=== PATIENT | female | born 1990 | race Caucasian/White ===

== ENCOUNTER → 2017-06-13 | Outpatient (REF) | payer OTHER ==
[~2017-06-13] MED LIST: ACET50TA PO; IBUP-1114 PO; PRENTAB9 PO; TUMS500C PO
== END ==
LOC: M LAB REF 17:10
PROVIDERS: ATTEND Advanced Practice Midwife
DX: Z12.4 Encounter for screening for malignant neoplasm of cervix (principal)

== ENCOUNTER → 2017-09-22 | Outpatient (CLI) | payer OTHER ==
[2017-09-22 14:10] LABS: HCG, SERUM QUANTITATIVE 9 MIU/ML
== END ==
LOC: M LAB 13:06
DX: O20.0 Threatened abortion (principal); Z3A.00 Weeks of gestation of pregnancy not specified
CPT/HCPCS: 84702

== ENCOUNTER → 2017-09-24 | Outpatient (CLI) | payer OTHER ==
[2017-09-24 18:21] LABS: HCG, SERUM QUANTITATIVE 3 MIU/ML
== END ==
LOC: M LAB 16:50
DX: O20.0 Threatened abortion (principal)

== ENCOUNTER → 2018-02-07 | Outpatient (CLI) | payer OTHER | LOC: M RAD 09:12 | DX: R51 Headache (principal); R41.3 Other amnesia; R47.01 Aphasia; G47.9 Sleep disorder, unspecified; J34.1 Cyst and mucocele of nose and nasal sinus | CPT/HCPCS: 70551 ==

== ENCOUNTER → 2018-03-26 | Outpatient (CLI) | payer OTHER | LOC: M RAD 17:29 | DX: J32.0 Chronic maxillary sinusitis (principal) ==

== ENCOUNTER → 2020-01-07 | Outpatient (CLI) | payer OTHER ==
[~2020-01-07] MED LIST changes: -ACET50TA PO; +MAPA500T2 PO
--- NOTE | 2020-01-08 07:34 | REP ---
OB ULTRASOUND: Real-time sonographic evaluation of the gravid uterus is performed. There is a single intrauterine gestation. The gestational age is 24 weeks, EDC 04/28/2020. Today's measurements indicate appropriate growth. Biometry and Growth: BPD 60 mm = 24 weeks 3 days, 60th percentile HC 218 mm = 23 weeks 6 days, 45th percentile AC 194 mm = 24 weeks 1 day, 52nd percentile FL 43 mm = 24 weeks 0 days, 52nd percentile HC/AC ratio 1.12 within normal range of 1.02 to 1.21. Estimated weight 659 grams, 47th percentile. SEEN/GROSSLY UNREMARKABLE Lateral ventricles Yes Posterior fossa Yes Upper lip Yes Four-chamber heart Yes LVOT Yes RVOT Yes Stomach Yes Cord insertion No Three vessel cord No Kidneys Yes Bladder Yes Spine Yes Cervical length: Closed and measures 4 cm in length. heart rate: 129 beats per minute. position: Vertex. Placenta: Posterior and grade 1 with no previa or abruption. Amniotic fluid: Within normal limits.
== END ==
LOC: M WHC 09:03
PROVIDERS: ATTEND Advanced Practice Midwife
DX: O99.212 Obesity complicating pregnancy, second trimester (principal); Z3A.24 24 weeks gestation of pregnancy

== ENCOUNTER → 2020-02-03 | Outpatient (CLI) | payer OTHER ==
--- NOTE | 2020-02-04 03:46 | REP ---
Clinical: Anatomical evaluation. Comparison: 01/07/2020 . Findings: Examination demonstrates a single live intrauterine in cephalic presentation. motion is identified by technologist. Placenta is noted posterior and grade I without evidence for placenta previa or abruption. Amniotic fluid volume is normal. Cervix measures 3.7 cm in length and appears closed. No evidence for nuchal cord. Gestational age by LMP 27 weeks 6 days with LAUREN 04/28/2020 . Gestational age by current measurements 28 weeks 0 days with LAUREN 04/27/2020 . FHR equals 132 beats per minute. Estimated weight 1239 grams ( 57th percentile). Anatomical assessment demonstrates normal structures including cranium, facial features, lungs, four-chamber heart/ventricular outflow tracts, diaphragm, stomach, cord insertion/three-vessel cord, kidneys/bladder. Impression: A single live intrauterine in cephalic presentation demonstrating appropriate interval growth. In conjunction with prior examination anatomical assessment is complete and normal.
== END ==
LOC: M WHC 08:02
PROVIDERS: ATTEND Advanced Practice Midwife
DX: O99.212 Obesity complicating pregnancy, second trimester (principal); E66.9 Obesity, unspecified; Z3A.27 27 weeks gestation of pregnancy

== ENCOUNTER → 2020-02-24 | Outpatient (CLI) | payer OTHER | LOC: M LAB 07:02 | PROVIDERS: ATTEND Advanced Practice Midwife | DX: Z34.93 Encounter for supervision of normal pregnancy, unspecified, third trimester (principal) ==

== ENCOUNTER → 2020-03-28 | Outpatient (REF) | payer OTHER ==
[~2020-03-28] MED LIST changes: +ACET-683 PO; +BUSP10TA PO; +IBUP80TA PO; +OMEP10CASR PO
[2020-04-24 14:50] LABS: HEMATOCRIT 34.9 % (36.0-47.0); HEMOGLOBIN 11.2 g/dl (12.0-15.5); MEAN CORPUSCULAR HEMOGLOBIN 31.2 pg (27.0-33.0); MEAN CORPUSCULAR HGB CONC 32.1 g/dl (32.0-36.5); MEAN CORPUSCULAR VOLUME 97.2 fl (80.0-96.0); PLATELET COUNT, AUTOMATED 254 10^3/uL (150-450); RED BLOOD COUNT 3.59 10^6/uL (4.00-5.40); WHITE BLOOD COUNT 10.7 10^3/uL (4.0-10.0)
[2020-05-12 12:53] LABS: ALT/SGPT 17 U/L (12-78); BILIRUBIN,TOTAL 0.3 MG/DL (0.2-1.0); CREATININE FOR GFR 0.49 MG/DL (0.55-1.30); GLOMERULAR FILTRATION RATE > 60.0 (>60); LDH LACTATE DEHYDROGENASE 152 U/L (84-246); URIC ACID 3.5 MG/DL (2.6-6.0)
[2020-05-12 12:54] LABS: TOTAL PROTEIN,RANDOM URINE 16.6 MG/DL (0.0-12.0)
== END ==
LOC: M SFHCWAGY 12:46
PROVIDERS: ATTEND Advanced Practice Midwife
DX: Z34.83 Encounter for supervision of other normal pregnancy, third trimester (principal)

== ENCOUNTER → 2020-04-06 | Outpatient (REF) | payer OTHER | LOC: M SFHCWAGY 14:05 | PROVIDERS: ATTEND Advanced Practice Midwife | DX: Z34.83 Encounter for supervision of other normal pregnancy, third trimester (principal) | CPT/HCPCS: 87081; G0463 ==

== ENCOUNTER 2020-04-09 09:00 | Emergency (ER) | payer OTHER ==
[~2020-04-09 09:00] MED LIST changes: -ACET-683 PO; -BUSP10TA PO; -IBUP80TA PO; -OMEP10CASR PO
--- NOTE | 2020-05-12 15:30 | ECGEPIP ---
SINUS RHYTHM ABNORMAL QRS-T ANGLE ABNORMAL ECG NONSPECIFIC ST & T CHANGES NO PRIOR DUE TO DOWNTIME SEE SCANNED DOWNTIME REPORT MTDD
[2020-05-22 10:21] LABS: INR 1.03; PARTIAL THROMBOPLASTIN TIME 26.2 SECONDS (24.2-38.5); PROTHROMBIN TIME 13.7 SECONDS (12.5-14.3)
[2020-05-22 22:16] LABS: BASO % 0.4 % (0.0-1.0); EOS # 0.1 10^3/uL (0.0-0.5); EOS % 1.2 % (0.0-3.0); HEMATOCRIT 30.7 % (36.0-47.0); HEMOGLOBIN 10.4 g/dl (12.0-15.5); LYMPH # 2.3 10^3/uL (1.5-5.0); LYMPH % 22.3 % (24.0-44.0); MEAN CORPUSCULAR HEMOGLOBIN 31.4 pg (27.0-33.0); MEAN CORPUSCULAR HGB CONC 33.9 g/dl (32.0-36.5); MEAN CORPUSCULAR VOLUME 92.7 fl (80.0-96.0); MONO # 0.6 10^3/uL (0.0-0.8); MONO % 6.3 % (0.0-5.0); NEUTROPHILS % 68.6 % (36.0-66.0); PLATELET COUNT, AUTOMATED 253 10^3/uL (150-450); RED BLOOD COUNT 3.31 10^6/uL (4.00-5.40); WHITE BLOOD COUNT 10.2 10^3/uL (4.0-10.0)
== END 2020-04-09 09:50 | disposition admitted as inpatient to this hospital (09) ==
LOC: M LDO 09:00 → M ED 09:00
DX: O99.413 Diseases of the circulatory system complicating pregnancy, third trimester (principal); O99.353 Diseases of the nervous system complicating pregnancy, third trimester; R06.02 Shortness of breath; R42 Dizziness and giddiness; Z3A.37 37 weeks gestation of pregnancy

== ENCOUNTER 2020-04-09 09:55 | Outpatient (CLI) | payer OTHER | END 2020-04-09 12:05 | LOC: M LDO 09:55 | PROVIDERS: ATTEND Obstetrics & Gynecology | DX: O99.413 Diseases of the circulatory system complicating pregnancy, third trimester (principal); R06.02 Shortness of breath; O99.353 Diseases of the nervous system complicating pregnancy, third trimester; R42 Dizziness and giddiness; Z3A.37 37 weeks gestation of pregnancy ==

== ENCOUNTER 2020-04-11 20:54 | Inpatient (IN) | payer OTHER ==
[~2020-04-11] VITALS: Ht 149.9 cm; Wt 97.4 kg
[2020-04-11] MEDS ORDERED: PENICILLIN G POTASSIUM IV 5 MU in D5W MINI-BAG PLUS 100 ML IV STA (21:47)
[2020-04-11 22:07] LABS: HEMATOCRIT 32.4 % (36.0-47.0); HEMOGLOBIN 10.9 g/dl (12.0-15.5); MEAN CORPUSCULAR HGB CONC 33.6 g/dl (32.0-36.5); PLATELET COUNT, AUTOMATED 272 10^3/uL (150-450); RED BLOOD COUNT 3.52 10^6/uL (4.00-5.40); WHITE BLOOD COUNT 11.7 10^3/uL (4.0-10.0)
[2020-04-11] MEDS: busPIRone 10 MG TAB PO SCH (23:15)
[2020-04-11] MEDS ORDERED: OXYTOCIN DRIP 30 UNITS in IV 1 EA IV SCH (23:15)
[2020-04-11] MEDS ORDERED: ONDANSETRON 4MG/2ML VIAL IV PRN (23:15)
[2020-04-12] VITALS (25 sets, daily range): BP systolic 99–149; BP diastolic 48–92
[2020-04-12] MEDS: LR 1,000 ML IV SCH ×2 (00:43→08:37)
[2020-04-12] MEDS ORDERED: BUSP10TA PO (02:04)
[2020-04-12] MEDS: PENICILLIN G POTASSIUM IV 2.5 MU in IV 1 EA IV SCH ×3 (03:06→12:17)
[2020-04-12] MEDS ORDERED: OMEP10CASR PO (03:57)
[2020-04-12] MEDS ORDERED: FENTANYL 2MCG/ML ROPIVACAINE 0.2% IN 0.9% NACL 100ML IVBAG As Ordered ONE (04:27)
[2020-04-12] MEDS ORDERED: LACTATED RINGER'S 1000 ML IV PRN (05:30)
[2020-04-12] MEDS ORDERED: EPIDURAL/PCA KEYS XX PRN (05:30)
[2020-04-12] MEDS ORDERED: EPIDURAL COMMENT XX SCH (05:30)
[2020-04-12] MEDS ORDERED: ONDANSETRON 4MG/2ML VIAL IV PRN (05:30)
[2020-04-12] MEDS ORDERED: FENTANYL/ROPIVACAINE/NACL BAG 100 ML EPIDURAL SCH (05:30)
[2020-04-12] MEDS ORDERED: ePHEDrine SULFATE 25 MG/5 ML(5MG/ML) SYRINGE IV PRN (05:30)
[2020-04-12] MEDS ORDERED: REFRIGERATOR IV KEYS XX PRN (05:30)
[2020-04-12] MEDS ORDERED: NALOXONE INJ 0.4MG/1ML VIAL (J2310 PER 1MG) IV PRN (05:30)
[2020-04-12] MEDS ORDERED: diphenhydrAMINE 50MG/ML VIAL (J1200) IV PRN (05:30)
[2020-04-12] MEDS: busPIRone 10 MG TAB PO SCH ×2 (08:37→20:16)
[2020-04-12] MEDS ORDERED: fentaNYL 100 MCG/2 ML INJECTION (J3010) As Ordered ONE (10:27)
[2020-04-12] MEDS ORDERED: PENICILLIN 100,000 U/ML SYRINGE 2.5MU As Ordered ONE (12:15)
[2020-04-12] MEDS ORDERED: ACETAMINOPHEN 500 MG TAB PO PRN (14:00)
[2020-04-12] MEDS ORDERED: DOCUSATE SODIUM 100 MG CAP PO PRN (14:00)
[2020-04-12] MEDS ORDERED: METHYLERGONOVINE MALEATE 0.2 MG TAB PO PRN (14:00)
[2020-04-12] MEDS ORDERED: DIBUCAINE 1% OINTMENT 30GM TOP PRN (14:00)
[2020-04-12] MEDS ORDERED: ACETAMINOPHEN TAB 650MG DOSE (2X325MG) PO PRN (14:00)
[2020-04-12] MEDS ORDERED: RHOGAM 300 MCG (1500 IU) INJ (J2790) IM SCH (15:00)
[2020-04-12] MEDS ORDERED: OXYTOCIN DRIP 30 UNITS in IV 1 EA IV SCH (15:00)
[2020-04-12] MEDS ORDERED: MEASLES,MUMPS,RUBELLA VACCINE INJ (MMR-II) (90707) SC SCH (15:00)
[2020-04-12 15:20] LABS: HEPATITIS B SURFACE ANTIGEN NEGATIVE (NEGATIVE); HIV 1&2 SCREEN CENTAUR NEGATIVE (NEGATIVE)
[2020-04-12] MEDS ORDERED: BOOSTRIX/ADACEL VACCINE (DIPHTH/PERTUSS/ACELL/TETANUS) 0.5ML SYR IM PRN (18:15)
[2020-04-12] MEDS: IBUPROFEN 800 MG TAB PO PRN (19:32)
[2020-04-13 06:00] VITALS: BP 108/51
[2020-04-13] MEDS: IBUPROFEN 800 MG TAB PO PRN (07:40)
[2020-04-13] MEDS: PRENATAL VITAMINS CHEWABLE TABLET PO SCH (08:16)
[2020-04-13] MEDS: busPIRone 10 MG TAB PO SCH ×2 (08:16→20:56)
[2020-04-13] MEDS: IBUPROFEN 600MG TAB PO PRN (15:21)
[2020-04-13 18:00] VITALS: BP 131/76
[2020-04-14] MEDS: IBUPROFEN 600MG TAB PO PRN (05:24)
[2020-04-14 06:00] VITALS: BP 114/58
[2020-04-14] MEDS: busPIRone 10 MG TAB PO SCH (07:27)
[2020-04-14] MEDS: PRENATAL VITAMINS CHEWABLE TABLET PO SCH (07:27)
[2020-04-14] MEDS ORDERED: ACET-683 PO (09:21)
[2020-04-14] MEDS ORDERED: IBUP80TA PO (09:21)
--- NOTE | 2020-05-18 15:12 | ECGEPIP ---
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
--- NOTE | 2020-05-29 10:25 | HPE ---
DATE OF ADMISSION: 04/11/2020 REASON FOR ADMISSION: Spontaneous rupture of membranes. HISTORY OF PRESENT ILLNESS: Patient is a 29-year-old, 3, para 1, who presents with an EDC of 04/28/2020 with complaints of leakage of clear fluid. She reports a gush of fluid that occurred at approximately 8:00 this evening. She has had some irregular contractions. She reports active movement. Her course has been remarkable for recent heart palpitations. She currently has a Holter monitor on for evaluation of these heart palpitations. Otherwise, she has had an uncomplicated course. PAST MEDICAL HISTORY: Significant for anxiety. PAST SURGICAL HISTORY: Tonsillectomy and adenoidectomy. 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 She denies any alcohol, tobacco, or drug use during the . OBSTETRICAL HISTORY: She is 3, para 1. She has had one term vaginal delivery which was uncomplicated. PHYSICAL EXAMINATION: Vital signs: Stable. She is afebrile. She has a category 1 heart tracing. General appearance: Well-appearing, in no acute distress. Lungs: Clear to auscultation bilaterally. Cardiovascular: Heart regular rate and rhythm. Abdomen: Gravid, nontender. Cervical: She is 2 cm dilated, 50% effaced, -2 station, grossly ruptured. ASSESSMENT: * This patient is a 29-year-old 3, para 1, who presents with an EDC of 04/28/2020 with spontaneous rupture of membranes. * Reassuring status. PLAN: * Admit to labor and delivery, complete blood count (CBC), rapid plasma reagin (RPR), type and screen. * Dr. Singleton, varnish blender, has been notified for recommendations. Plan to obtain repeat EKG and will fax over to Dr. Singleton's office. * Patient is a good candidate for an epidural. * Anticipate spontaneous vaginal delivery. edited: 06/16/2020 [id number] FRIDAD
== END 2020-04-14 12:15 | disposition home or self-care (01) | DRG 807 ==
LOC: M LDO 20:54 → M LDI 21:29 → M OBS 04-12 15:43
PROVIDERS: ADMIT Obstetrics & Gynecology; ATTEND Obstetrics & Gynecology
PROC: 10E0XZZ Delivery of Products of Conception, External Approach (ICD-10-PCS; principal; 2020-04-12)
DX: O69.81X0 Labor and delivery complicated by cord around neck, without compression, not applicable or unspecified (principal); Z37.0 Single live birth; Z3A.37 37 weeks gestation of pregnancy

== ENCOUNTER → 2020-06-12 | Outpatient (REF) | payer OTHER ==
[~2020-06-12] MED LIST changes: +ACET-683 PO; +BUSP10TA PO; +IBUP80TA PO; +OMEP10CASR PO
== END ==
LOC: M SFHCWAGY 17:05
PROVIDERS: ATTEND Advanced Practice Midwife
DX: Z12.4 Encounter for screening for malignant neoplasm of cervix (principal)

== ENCOUNTER → 2020-09-20 | Outpatient (CLI) | payer OTHER ==
--- NOTE | 2020-09-20 09:59 | REP ---
INDICATION: FEVER, SOB COMPARISON: None. TECHNIQUE: PA and lateral. FINDINGS: Subtle bibasilar airspace disease is suggested and should be correlated with physical examination and auscultation. No discrete focal consolidation, effusion, or pneumothorax. Mediastinum and cardiac silhouette normal. Skeletal structures intact. IMPRESSION: Subtle basilar airspace disease suggested. <Electronically signed by Galileo Moses > 09/20/20 [id number]
== END ==
LOC: M WUC 09:29
PROVIDERS: ATTEND Physician Assistant
DX: R50.9 Fever, unspecified (principal); R06.02 Shortness of breath

== ENCOUNTER → 2021-06-13 | Outpatient (CLI) | payer OTHER | LOC: M LABSMTC 10:23 | PROVIDERS: ATTEND Pediatrics | DX: Z11.52 Encounter for screening for COVID-19 (principal) ==

== ENCOUNTER → 2021-08-21 | Outpatient (REF) | payer OTHER | LOC: M LAB REF 20:47 | PROVIDERS: ATTEND Physician Assistant Medical | DX: Z00.00 Encounter for general adult medical examination without abnormal findings (principal) ==

== ENCOUNTER → 2021-09-05 | Outpatient (CLI) | payer OTHER | LOC: M CARPUL 13:12 | PROVIDERS: ATTEND Internal Medicine Hematology & Oncology | DX: C50.912 Malignant neoplasm of unspecified site of left female breast (principal) ==